=== PATIENT | female | born 1935 | race Caucasian/White ===

== ENCOUNTER 2018-08-15 17:37 | Inpatient (IN) ==
[2018-08-18] MEDS ORDERED: Ibuprofen 200 MG TABLET PO PRN (16:47)
[2018-08-18] MEDS: OLODATEROL IH SCH (17:28)
[2018-08-18] MEDS: *HR* OxyCODONE/APAP 5/325 TABLET PO PRN (17:40)
[2018-08-18] MEDS: Magnesium Oxide 400 MG TABLET PO SCH (20:29)
[2018-08-18] MEDS: [UNRECOGNIZED DRUG - OTHER] PO SCH (20:39)
[2018-08-19] MEDS: Cyclosporine [Restasis] 1 EACH OP PRN ×2 (05:25→18:37)
[2018-08-19 06:16] LABS: Eosinophils # 0.2 K/mcL (0.0-0.6); Eosinophils % 4.3 %; Hematocrit 33.9 % (35.3-44.9); Hemoglobin 10.8 g/dL (11.5-15.4); Immature Granulocytes % 0.5 % (0-4); Lymphocytes # 0.6 K/mcL (0.6-4.6); Lymphocytes % 13.6 %; Mean Corpuscular HGB Conc 31.9 g/dL (31.6-35.5); Mean Corpuscular Hemoglobin 28.5 pg (28.0-33.3); Mean Corpuscular Volume 89.4 fL (83.0-100.0); Mean Platelet Volume 10.5 fL (9.4-12.4); Monocytes # 0.5 K/mcL (0.0-1.3); Monocytes % 12.1 %; Neutrophils # 2.9 K/mcL (1.6-8.9); Platelet Count 313 K/mcL (140-400); Red Blood Count 3.79 M/mcL (3.82-4.97); Red Cell Distribution Width 13.3 % (11.5-14.5); Segmented Neutrophils % 68.5 %; White Blood Count 4.2 K/mcL (4.3-11.1)
[2018-08-19 06:51] LABS: BUN/Creatinine Ratio 22 (6-26); Blood Urea Nitrogen 16 mg/dL (8-23); Calcium 8.7 mg/dL (8.6-10.3); Carbon Dioxide 30 mEq/L (23-29); Chloride 100 mEq/L (98-107); Glucose 128 mg/dL (70-105); Osmolality,Calculated 287 (280-300); Potassium 4.1 mEq/L (3.5-5.1); Sodium 137 mEq/L (136-145); eGFR For African Americans > 60 (> 60); eGFR For Non-African Americans > 60 (> 60)
[2018-08-19] MEDS: Aspirin 81 MG TAB.CHEW PO SCH (08:53)
[2018-08-19] MEDS: *HR* OxyCODONE/APAP 5/325 TABLET PO PRN ×3 (08:54→18:31)
[2018-08-19] MEDS: Cholecalciferol (D-3) 1,000 UNIT (25MCG) TABLET PO SCH (08:55)
[2018-08-19] MEDS: Furosemide 20 MG TABLET PO SCH (08:56)
[2018-08-19] MEDS: [UNRECOGNIZED DRUG - REMARK] PO SCH ×2 (08:56→18:35)
[2018-08-19] MEDS: Magnesium Oxide 400 MG TABLET PO SCH ×2 (08:56→20:24)
[2018-08-19] MEDS: Vitamin B Complex/Vit C/Vit E 1 EACH TABLET PO SCH (08:58)
[2018-08-19] MEDS: LUTEIN 20 MG PO SCH (08:59)
[2018-08-19] MEDS: Cyanocobalamin (B-12) 1,000 MCG TABLET PO SCH (08:59)
[2018-08-19] MEDS ORDERED: MELOXICAM 15 MG PO SCH (09:00)
[2018-08-19] MEDS ORDERED: Ascorbic Acid 500 MG TABLET PO SCH ×2 (09:00)
[2018-08-19] MEDS ORDERED: Multivit/Ca/Min/Fe/FA 1 TAB TABLET PO SCH (09:00)
[2018-08-19] MEDS: OLODATEROL IH SCH ×2 (09:00→18:36)
[2018-08-19] MEDS: Flaxseed Oil [Omega-3 Flaxseed Oil] 1,000 MG PO SCH (09:01)
[2018-08-19] MEDS: [UNRECOGNIZED DRUG - OTHER] PO SCH ×2 (09:03→20:28)
[2018-08-19] MEDS: LYSINE 500 MG PO SCH (09:03)
--- NOTE | 2018-08-19 13:32 | Internal Med History&Physical ---
Date of Encounter: 08/19/18 Time of Encounter: 11:20 Assessment and Plan (1) History of total left knee replacement Current visit: Yes Status: Acute pt is post op and doing well Debility here for Rehab pending evaluations Pt does have hx of anxiety and agitation chronic pain well controlled good appetite Internal Medicine - H&P: HPI Chief complaint: debility post left total knee replacement Admitted From: Intrahospital Transfer History of present illness: Ms. Guillen is a 82 year old female who had repair of her left knee with left total knee replacement. She had no significant complications she was transferred here for rehabilitation after debility. She will receive PT and OT services. The patient is accompanied by HER-2 daughters. PT has good pain control. Pt reports chronic constipation. Dtrs say she is chronic anxiety. EXAM GEN alert oriented agitated well kempt WF Neck supple no bruit no mass Heart reg dist Lungs clear abd soft nt bs extremity no homans no edema pulses 2 plus bilat Past Med Surg Social Fam HX - Past Medical History Medical history: arthritis, cancer, COPD, CVA, fibromyalgia - Past Surgical History Surgical History: appendectomy, cholecystectomy Additional surgical history: hernia sx x 3 - Social History Smoking Status: Former smoker Smokeless Tobacco Status: No Alcohol use: occasionally Drug use: none - Family History Mother Adopted: No Living Status: Hx Family Endocrine Disorder: Yes Internal Medicine - H&P: Meds Ascorbic Acid [Vitamin C with Elvie Hips] 500 mg PO DAILY 08/18/18 [History] B Complex with Vitamin C [Julianna-Bee with C] 1 each PO DAILY 08/18/18 [History] Calcium Carbonate [Tums] 1,000 mg PO DAILY 08/18/18 [History] Cholecalciferol (Vitamin D3) [Vitamin D] 400 unit PO DAILY 08/18/18 [History] Cyanocobalamin (B-12) [Vitamin B12] 1,000 mcg PO DAILY 08/18/18 [History] Cyclosporine [Restasis] 1 each OP BID PRN 08/18/18 [History] Flaxseed Oil [[place]-3 Flaxseed Oil] 1,000 mg PO DAILY 08/18/18 [History] Furosemide [Lasix] 20 mg PO DAILY 08/18/18 [History] Gluc/Reid-MSM#1/C/Sarthak/Fracisco/Bor [Osteo Bi-Flex Caplet] 1 each PO BID 08/18/18 [History] Ibuprofen [Motrin] 200 mg PO Q6HR PRN 08/18/18 [History] Levocetirizine Dihydrochloride [Allergy Relief (Xyzal)] 5 mg PO DAILY 08/18/18 [History] Lutein [Natural Lutein] 20 mg PO DAILY 08/18/18 [History] Lysine [l-Lysine] 500 mg PO DAILY 08/18/18 [History] Magnesium Oxide [Magnesium] 400 mg PO BID 08/18/18 [History] Meloxicam 15 mg PO DAILY 08/18/18 [History] Multivit-Min/FA/Lycopen/Lutein [Centrum Silver Tablet] 1 each PO DAILY 08/18/18 [History] Olodaterol HCl [Striverdi Respimat] 4 gm IH BID 08/18/18 [History] Omeprazole [PriLOSEC] 20 mg PO DAILY 08/18/18 [History] Oxycodone HCl/Acetaminophen [Percocet 5-325 mg Tablet] 08/18/18 [History] Percocet 5-325 mg Tablet 1 mg PO Q4H PRN 08/18/18 [History] Preservision Areds 2 Softgel 1 PO BID 08/18/18 [History] Zolpidem Tartrate [Ambien Cr] 6.25 mg PO HS 08/18/18 [History] Allergy/AdvReac Type Severity Reaction Status Date / Time No Known Allergies Allergy Verified 03/05/16 12:50 All Systems PM: A 10-system review of systems was performed and is negative for pertinent findings except as documented above in the HPI. - Constitutional Vitals: Temp Pulse Resp BP Pulse Ox 98.2 F 78 16 111/60 92 08/19/18 07:07 08/19/18 08:16 08/19/18 08:16 08/19/18 08:16 08/19/18 08:16 Internal Med - H&P Results - Labs CBC & Chem 7: 08/19/18 05:25 08/19/18 05:25 Labs: Short CBC 08/19/18 Range/Units 05:25 WBC 4.2 L (4.3-11.1) K/mcL Hgb 10.8 L (11.5-15.4) g/dL Hct 33.9 L (35.3-44.9) % Plt Count 313 (140-400) K/mcL Neutrophils # 2.9 (1.6-8.9) K/mcL BMP 08/19/18 05:25 Sodium 137 Potassium 4.1 Chloride 100 Carbon Dioxide 30 H BUN 16 Creatinine 0.72 Glucose 128 H Calcium 8.7
[2018-08-20] MEDS: Ibuprofen 200 MG TABLET PO PRN ×3 (01:23→23:02)
[2018-08-20] MEDS: *HR* OxyCODONE/APAP 5/325 TABLET PO PRN ×3 (04:27→21:09)
[2018-08-20] MEDS: *HR* Enoxaparin 40 MG/0.4 ML SYRINGE SQ SCH (05:42)
[2018-08-20] MEDS: Cyclosporine [Restasis] 1 EACH OP PRN (05:46)
[2018-08-20] MEDS: OLODATEROL IH SCH ×2 (05:48→21:08)
[2018-08-20] MEDS: Flaxseed Oil [Omega-3 Flaxseed Oil] 1,000 MG PO SCH (08:40)
[2018-08-20] MEDS: ECHINACEA 400 MG PO SCH (08:40)
[2018-08-20] MEDS: MULTIVITAMIN PO SCH (08:40)
[2018-08-20] MEDS: [UNRECOGNIZED DRUG - OTHER] PO SCH ×2 (08:40→21:08)
[2018-08-20] MEDS: LUTEIN 20 MG PO SCH (08:41)
[2018-08-20] MEDS: [UNRECOGNIZED DRUG - OTHER] PO SCH ×2 (08:41→21:08)
[2018-08-20] MEDS: LYSINE 500 MG PO SCH (08:41)
[2018-08-20] MEDS: Magnesium Oxide 400 MG TABLET PO SCH ×2 (08:50→21:08)
[2018-08-20] MEDS: Ascorbic Acid 500 MG TABLET PO SCH (08:50)
[2018-08-20] MEDS: Aspirin 81 MG TAB.CHEW PO SCH (08:50)
[2018-08-20] MEDS: Cholecalciferol (D-3) 1,000 UNIT (25MCG) TABLET PO SCH (08:50)
[2018-08-20] MEDS: Vitamin B Complex/Vit C/Vit E 1 EACH TABLET PO SCH ×2 (08:50)
[2018-08-20] MEDS: Furosemide 20 MG TABLET PO SCH (08:50)
[2018-08-20] MEDS: Pyridoxine (B-6) 50 MG TABLET PO SCH (11:53)
[2018-08-20] MEDS: Cyanocobalamin (B-12) 1,000 MCG TABLET PO SCH (11:53)
--- NOTE | 2018-08-20 12:53 | Internal Med Progress Note ---
Date of Encounter: 08/20/18 Time of Encounter: 12:51 - Assessment and plan (1) History of total left knee replacement Current Visit: Yes Status: Acute Assessment and plan: No acute issues at this time. Patient's left knee surgical incision appears healthy with dressing intact. Slight swelling noted. Patient with complaints o f pain to her left knee and stating that her medication is not enough, but refuses any increase and medication stating that we are trying to make her drug addict. Patient dissipating of physical therapy. We will continue with current plan of care. (2) Agitation Current Visit: Yes Status: Acute Assessment and plan: Patient noted to be easily agitated during exam and interview. Patient having multiple complaints from staff due to agitation and being uncooperative. Patient has had multiple and appropriate answers during conversation. We will refer patient to psychology for evaluation. We will continue with current plan of care. Patient with recorded history of agitation. (3) COPD (chronic obstructive pulmonary disease) Current Visit: Yes Status: Acute Assessment and plan: No acute issues. Lungs are clear throughout. We will continue with current plan of care Qualifiers: COPD type: unspecified COPD Qualified Code(s): J44.9 - Chronic obstructive pulmonary disease, unspecified - Time Spent With Patient less than 15 minutes - Subjective Interval history: Patient appears relaxed for complaints of pain to her left knee. Patient was asked that the pain medication was effective when she Jacqueline and she stated yes and when discussed possible increase her medication patient accused us of trying to make her a drug addict. Patient has been argumentative with staff during the morning on multiple subjects. During exam was agitated and argumentative during questioning. Patient appears appropriate with answers but unable to evaluate her orientation due to her agitation and answering questions. Therapy states the patient has been compliant with therapy. Nurse reports difficulty with working with patient with patient usually making multiple demands prior to p erforming any simple task. - Constitutional Vitals: Temp Pulse Resp BP Pulse Ox 97.5 F L 79 17 116/67 95 08/20/18 07:32 08/20/18 07:32 08/20/18 07:32 08/20/18 07:32 08/20/18 07:32 Exam: Unpleasant during conversation. Answer simple questions appropriately but also refuses answer questions. Reports of compliance and appropriateness during therapy. Patient was cooperative with exam - Head Head exam: Present: atraumatic, normocephalic - Eye Eye exam: Present: PERRL, conjuntiva pink, sclera anicteric Pupils: Present: PERRL - Neck Neck exam general surgery: Present: supple, trachea midline. Absent: lymphadenopathy - Respiratory Respiratory exam: Present: CTAB. Absent: accessory muscle use, rales, rhonchi, wheezes - Cardiovascular Cardiovascular exam: Present: RRR, +S1, +S2. Absent: diastolic murmur, gallop, rubs, systolic murmur - GI/Abdominal GI/Abdominal exam: Present: normal bowel sounds, soft, no peritoneal signs. Absent: distended, tenderness - Extremities Exam Extremities exam: Present: warm, radial pulses palpable and symmetrical. Absent: calf tenderness, cyanotic, pedal edema Additional comments: Left knee with midline incision with dressing showing small amount of shadowing. Slight edema noted. - Neurological Exam Neurological exam: Present: CN II-XII intact, oriented X3, no focal deficits. Absent: pronater drift, facial droop, speech deficit - Psychiatric Psychiatric exam: Present: agitated, normal affect Additional comments: Patient noted to be agitated with mood changes, depending on task on hand. Patient was cooperative with exam but has reportedly been uncooperative during ADLs with nursing. Easily agitated with multiple inappropriate answers to questions. - Skin Skin exam: Present: dry, intact Internal Medicine: Result - Labs CBC & Chem 7: 08/19/18 05:25 08/19/18 05:25 Consult Discharge Plan - Plan Referrals: NONE,PCP [Primary Care Provider] -
[2018-08-20] MEDS: [UNRECOGNIZED DRUG - REMARK] PO SCH ×2 (14:48→21:12)
[2018-08-21] MEDS: Ibuprofen 200 MG TABLET PO PRN (05:31)
[2018-08-21] MEDS: *HR* Enoxaparin 40 MG/0.4 ML SYRINGE SQ SCH (05:31)
[2018-08-21] MEDS: Cyclosporine [Restasis] 1 EACH OP PRN (07:14)
[2018-08-21] MEDS: OLODATEROL IH SCH ×3 (07:14→19:33)
[2018-08-21] MEDS: Furosemide 20 MG TABLET PO SCH (08:59)
[2018-08-21] MEDS: Cyanocobalamin (B-12) 1,000 MCG TABLET PO SCH (08:59)
[2018-08-21] MEDS: Pyridoxine (B-6) 50 MG TABLET PO SCH (09:00)
[2018-08-21] MEDS: Cholecalciferol (D-3) 1,000 UNIT (25MCG) TABLET PO SCH (09:00)
[2018-08-21] MEDS: Aspirin 81 MG TAB.CHEW PO SCH (09:00)
[2018-08-21] MEDS: Ascorbic Acid 500 MG TABLET PO SCH (09:00)
[2018-08-21] MEDS: Magnesium Oxide 400 MG TABLET PO SCH ×2 (09:00→23:14)
[2018-08-21] MEDS: MULTIVITAMIN PO SCH (09:01)
[2018-08-21] MEDS: ECHINACEA 400 MG PO SCH (09:01)
[2018-08-21] MEDS: LYSINE 500 MG PO SCH (09:02)
[2018-08-21] MEDS: Flaxseed Oil [Omega-3 Flaxseed Oil] 1,000 MG PO SCH (09:02)
[2018-08-21] MEDS: [UNRECOGNIZED DRUG - OTHER] PO SCH ×2 (09:02→23:14)
[2018-08-21] MEDS: [UNRECOGNIZED DRUG - OTHER] PO SCH ×2 (09:03→23:15)
[2018-08-21] MEDS: LUTEIN 20 MG PO SCH (09:03)
[2018-08-21] MEDS: *HR* OxyCODONE/APAP 5/325 TABLET PO PRN ×2 (09:04→19:30)
[2018-08-21] MEDS: [UNRECOGNIZED DRUG - REMARK] PO SCH (15:33)
--- NOTE | 2018-08-21 15:48 | Internal Med Progress Note ---
Date of Encounter: 08/21/18 Time of Encounter: 15:46 - Assessment and plan (1) History of total left knee replacement Current Visit: Yes Status: Acute Assessment and plan: No acute issues at this time. Patient's left knee surgical incision appears healthy with dressing intact. Slight swelling noted. Patient participating of p hysical therapy. We will continue with current plan of care. (2) Agitation Current Visit: Yes Status: Acute Assessment and plan: Patient continues to become easily agitated during interactions with staff, at times have becomes very rude. Patient being followed by psychology. We will await further recommendations. Patient has a history of agitation per medical records (3) COPD (chronic obstructive pulmonary disease) Current Visit: Yes Status: Acute Assessment and plan: No acute issues. Lungs are clear throughout. We will continue with current plan of care Qualifiers: COPD type: unspecified COPD Qualified Code(s): J44.9 - Chronic obstructive pulmonary disease, unspecified - Time Spent With Patient less than 15 minutes - Subjective Interval history: Patient with complaints of cough but states no sputum has been produced. Patient recently had a chest x-ray done yesterday which shows no infectious process. Patient is been afebrile and has been observed ambulating throughout the facility with physical therapy and explained no shortness of breath or coughing. She continues to have episodes of agitation and rudeness with staff. She remains oriented but during questioning she can have an appropriate answers - Constitutional Vitals: Temp Pulse Resp BP Pulse Ox 98.1 F 69 15 124/70 92 08/21/18 07:32 08/21/18 07:32 08/21/18 07:32 08/21/18 07:32 08/21/18 07:32 General appearance: Present: A&O X 3 Exam: Patient easily agitated during questioning. - Head Head exam: Present: atraumatic, normocephalic - Eye Eye exam: Present: PERRL, conjuntiva pink, sclera anicteric Pupils: Present: PERRL - Neck Neck exam general surgery: Present: supple, trachea midline. Absent: lymphadenopathy - Respiratory Respiratory exam: Present: CTAB. Absent: accessory muscle use, rales, rhonchi, wheezes - Cardiovascular Cardiovascular exam: Present: RRR, +S1, +S2. Absent: diastolic murmur, gallop, rubs, systolic murmur - GI/Abdominal GI/Abdominal exam: Present: normal bowel sounds, soft, no peritoneal signs. Absent: distended, tenderness - Extremities Exam Extremities exam: Present: warm, radial pulses palpable and symmetrical. Absent: calf tenderness, cyanotic, pedal edema Additional comments: Left knee with midline surgical incision appears dry and intact. Slight swelling noted left knee - Neurological Exam Neurological exam: Present: CN II-XII intact, oriented X3, no focal deficits. Absent: pronater drift, facial droop, speech deficit - Skin Skin exam: Present: dry, intact Internal Medicine: Result - Labs CBC & Chem 7: 08/19/18 05:25 08/19/18 05:25 - Impressions Impressions Chest X-Ray 08/20/18 09:43 IMPRESSION: No acute process. D/ / Jose Martin Haskins MD / Jose Martin Haskins MD Interpreting Provider: Jose Martin Haskins MD Consult Discharge Plan - Plan Referrals: NONE,PCP [Primary Care Provider] -
--- NOTE | 2018-08-21 15:53 | Psychological Evaluation ---
Date of Encounter: 08/21/18 Time of Encounter: 10:00 History of Present Illness History of present illness: Ms. Guillen is a 82 year old female who had repair of her left knee with left total knee replacement. She had no significant complications she was transferred here for rehabilitation after debility. She will receive PT and OT services. The patient is accompanied by HER-2 daughters. PT has good pain control. Pt reports chronic constipation. Dtrs say she is chronic anxiety. Past Medical History - Psychiatric History Psychiatric history: Reports: anxiety Additional Psychiatric History: Stated counseling for marital issues in the past. Home Medications and Allergies Ascorbic Acid [Vitamin C with Elvie Hips] 500 mg PO DAILY 08/18/18 [History] B Complex with Vitamin C [Julianna-Bee with C] 1 each PO DAILY 08/18/18 [History] Calcium Carbonate [Tums] 1,000 mg PO DAILY 08/18/18 [History] Cholecalciferol (Vitamin D3) [Vitamin D] 400 unit PO DAILY 08/18/18 [History] Cyanocobalamin (B-12) [Vitamin B12] 1,000 mcg PO DAILY 08/18/18 [History] Cyclosporine [Restasis] 1 each OP BID PRN 08/18/18 [History] Flaxseed Oil [[place]-3 Flaxseed Oil] 1,000 mg PO DAILY 08/18/18 [History] Furosemide [Lasix] 20 mg PO DAILY 08/18/18 [History] Gluc/Reid-MSM#1/C/Sarthak/Fracisco/Bor [Osteo Bi-Flex Caplet] 1 each PO BID 08/18/18 [History] Ibuprofen [Motrin] 200 mg PO Q6HR PRN 08/18/18 [History] Levocetirizine Dihydrochloride [Allergy Relief (Xyzal)] 5 mg PO DAILY 08/18/18 [History] Lutein [Natural Lutein] 20 mg PO DAILY 08/18/18 [History] Lysine [l-Lysine] 500 mg PO DAILY 08/18/18 [History] Magnesium Oxide [Magnesium] 400 mg PO BID 08/18/18 [History] Meloxicam 15 mg PO DAILY 08/18/18 [History] Multivit-Min/FA/Lycopen/Lutein [Centrum Silver Tablet] 1 each PO DAILY 08/18/18 [History] Olodaterol HCl [Striverdi Respimat] 4 gm IH BID 08/18/18 [History] Omeprazole [PriLOSEC] 20 mg PO DAILY 08/18/18 [History] Oxycodone HCl/Acetaminophen [Percocet 5-325 mg Tablet] 08/18/18 [History] Percocet 5-325 mg Tablet 1 mg PO Q4H PRN 08/18/18 [History] Preservision Areds 2 Softgel 1 PO BID 08/18/18 [History] Zolpidem Tartrate [Ambien Cr] 6.25 mg PO HS 08/18/18 [History] Allergy/AdvReac Type Severity Reaction Status Date / Time No Known Allergies Allergy Verified 03/05/16 12:50 Social History - Social History Social History: 3 times. Currently single and lives alone. Has 2 adult daughters in the general area. Retired 2000. 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 - Alcohol Use Alcohol Use: occasionally - Drug Use Drug Use: none Cognitive/Emotional Assessment - Cognitive Ability Abstract Thinking Ability: No Deficits Noted Attention Span Ability: Capable of Focused Attention, Capable of Sustained Attention Language Function Ability: No Deficits Noted Verbal Communication Ability: Conversational Style Problem Solving Ability: Able To Solve Simple Problems Safety Awareness: Situational Awareness Level of Alertness: Alert Memory Description: Recent Intact, Family Day Care Provider Intact Orientation: Person, Place, Time Ability to Follow Directions: Good Speech Pattern: Normal rate, Normal rhythm, Normal tone Thought Process: Intact - Emotional Status Mood Description: Depressed, Anxious Affect Description: Full range Coping Ability: Unsure about ability to cope Additional Findings: Stated she is "living in fear" of ability to return home and live independently. Not ready to go jome and doesn't feel capable to manage by self. Stated she was very "depressed". Assessment & Plan - Prognosis Prognosis: Good - Treatment Plan Treatment Plan/Recommendations: Will be set up idependent in room to increase her awareness of abilities. She has an Adjustment Disorder with mixed anxiety and depressed mood. She appears rigid and needs concrete examples of skill set and abilities. Procedures - Participants Therapy Participant: Patient - Session Time Session Start Time: 10:00 Session Stop Time: 10:30
[2018-08-22] MEDS: Ibuprofen 200 MG TABLET PO PRN (01:46)
[2018-08-22] MEDS: *HR* Enoxaparin 40 MG/0.4 ML SYRINGE SQ SCH (05:08)
[2018-08-22] MEDS: Cholecalciferol (D-3) 1,000 UNIT (25MCG) TABLET PO SCH (09:26)
[2018-08-22] MEDS: Pyridoxine (B-6) 50 MG TABLET PO SCH (09:26)
[2018-08-22] MEDS: Magnesium Oxide 400 MG TABLET PO SCH ×2 (09:26→21:05)
[2018-08-22] MEDS: Furosemide 20 MG TABLET PO SCH (09:26)
[2018-08-22] MEDS: Cyanocobalamin (B-12) 1,000 MCG TABLET PO SCH (09:27)
[2018-08-22] MEDS: Vitamin B Complex/Vit C/Vit E 1 EACH TABLET PO SCH (09:27)
[2018-08-22] MEDS: Aspirin 81 MG TAB.CHEW PO SCH (09:27)
[2018-08-22] MEDS: *HR* OxyCODONE/APAP 5/325 TABLET PO PRN ×3 (09:27→20:52)
[2018-08-22] MEDS: Ascorbic Acid 500 MG TABLET PO SCH (09:27)
[2018-08-22] MEDS: LYSINE 500 MG PO SCH (09:47)
[2018-08-22] MEDS: ECHINACEA 400 MG PO SCH (09:47)
[2018-08-22] MEDS: [UNRECOGNIZED DRUG - OTHER] PO SCH ×2 (09:47→21:06)
[2018-08-22] MEDS: LUTEIN 20 MG PO SCH (09:47)
[2018-08-22] MEDS: [UNRECOGNIZED DRUG - OTHER] PO SCH ×2 (09:47→21:05)
[2018-08-22] MEDS: Flaxseed Oil [Omega-3 Flaxseed Oil] 1,000 MG PO SCH (09:47)
[2018-08-22] MEDS: OLODATEROL IH SCH ×2 (09:48→22:34)
[2018-08-22] MEDS: MULTIVITAMIN PO SCH (09:48)
--- NOTE | 2018-08-22 10:42 | Internal Med Progress Note ---
Date of Encounter: 08/22/18 Time of Encounter: 10:41 - Assessment and plan (1) History of total left knee replacement Current Visit: Yes Status: Acute Assessment and plan: No acute issues at this time. Patient's left knee surgical incision appears healthy with dressing intact. Slight swelling noted to the left leg distal to s urgical site. We will obtain a venous Doppler due to patient's complaints of pain.. Patient participating of physical therapy. We will continue with current plan of care. (2) Agitation Current Visit: Yes Status: Acute Assessment and plan: Patient continues to become easily agitated during interactions with staff, at times have becomes very rude. Patient being followed by psychology. We will await further recommendations. Patient has a history of agitation per medical records (3) COPD (chronic obstructive pulmonary disease) Current Visit: Yes Status: Acute Assessment and plan: No acute issues. Lungs are clear throughout. We will continue with current plan of care Qualifiers: COPD type: unspecified COPD Qualified Code(s): J44.9 - Chronic obstructive pulmonary disease, unspecified - Time Spent With Patient less than 15 minutes - Subjective Interval history: Patient doing well. Patient states she continues to have mild pain to her left knee area. Patient also voiced concerns about left leg being swollen distal to the surgical site. Denies any Pain. Patient with complaints about not being able to take her home medications without nursing involvement. Patient explained that nursing must be present for documentation. Patient has not and agreement. - Constitutional Vitals: Temp Pulse Resp BP Pulse Ox 97.5 F L 74 18 134/70 96 08/22/18 07:00 08/22/18 07:00 08/22/18 07:00 08/22/18 07:00 08/22/18 07:00 General appearance: Present: A&O X 3 - Head Head exam: Present: atraumatic, normocephalic - Eye Eye exam: Present: PERRL, conjuntiva pink, sclera anicteric Pupils: Present: PERRL - Neck Neck exam general surgery: Present: supple, trachea midline. Absent: lymphadenopathy - Respiratory Respiratory exam: Present: CTAB. Absent: accessory muscle use, rales, rhonchi, wheezes - Cardiovascular Cardiovascular exam: Present: RRR, +S1, +S2. Absent: diastolic murmur, gallop, rubs, systolic murmur - GI/Abdominal GI/Abdominal exam: Present: normal bowel sounds, soft, no peritoneal signs. Absent: distended, tenderness - Extremities Exam Extremities exam: Present: warm, radial pulses palpable and symmetrical. Absent: calf tenderness, cyanotic, pedal edema Additional comments: Left knee with midline incision appears healthy and intact. Slight edema noted. - Neurological Exam Neurological exam: Present: CN II-XII intact, oriented X3, no focal deficits. Absent: pronater drift, facial droop, speech deficit - Skin Skin exam: Present: dry, intact Internal Medicine: Result - Labs CBC & Chem 7: 08/19/18 05:25 08/19/18 05:25 Consult Discharge Plan - Plan Referrals: NONE,PCP [Primary Care Provider] -
[2018-08-22] MEDS: [UNRECOGNIZED DRUG - REMARK] PO SCH (14:49)
[2018-08-23] MEDS: *HR* OxyCODONE/APAP 5/325 TABLET PO PRN ×2 (02:22→22:15)
[2018-08-23] MEDS: *HR* Enoxaparin 40 MG/0.4 ML SYRINGE SQ SCH (06:10)
[2018-08-23] MEDS: Cyanocobalamin (B-12) 1,000 MCG TABLET PO SCH (08:19)
[2018-08-23] MEDS: Pyridoxine (B-6) 50 MG TABLET PO SCH (08:19)
[2018-08-23] MEDS: Aspirin 81 MG TAB.CHEW PO SCH (08:19)
[2018-08-23] MEDS: Cholecalciferol (D-3) 1,000 UNIT (25MCG) TABLET PO SCH (08:19)
[2018-08-23] MEDS: Ibuprofen 200 MG TABLET PO PRN ×2 (08:19→15:50)
[2018-08-23] MEDS: Magnesium Oxide 400 MG TABLET PO SCH ×2 (08:19→21:20)
[2018-08-23] MEDS: MULTIVITAMIN PO SCH (08:20)
[2018-08-23] MEDS: Vitamin B Complex/Vit C/Vit E 1 EACH TABLET PO SCH (08:20)
[2018-08-23] MEDS: Ascorbic Acid 500 MG TABLET PO SCH (08:20)
[2018-08-23] MEDS: Furosemide 20 MG TABLET PO SCH (08:20)
[2018-08-23] MEDS: Flaxseed Oil [Omega-3 Flaxseed Oil] 1,000 MG PO SCH (08:21)
[2018-08-23] MEDS: ECHINACEA 400 MG PO SCH (08:21)
[2018-08-23] MEDS: [UNRECOGNIZED DRUG - OTHER] PO SCH ×2 (08:21→21:20)
[2018-08-23] MEDS: LYSINE 500 MG PO SCH (08:21)
[2018-08-23] MEDS: LUTEIN 20 MG PO SCH (08:21)
[2018-08-23] MEDS: OLODATEROL IH SCH ×2 (08:21→21:20)
[2018-08-23] MEDS: [UNRECOGNIZED DRUG - OTHER] PO SCH ×2 (08:21→21:20)
--- NOTE | 2018-08-23 13:10 | Internal Med Progress Note ---
Date of Encounter: 08/23/18 Time of Encounter: 13:08 - Assessment and plan (1) History of total left knee replacement Current Visit: Yes Status: Acute Assessment and plan: No acute issues at this time. Patient's left knee surgical incision appears healthy with dressing intact. Slight swelling noted to the left leg distal to s urgical site. Left leg appears less swollen. We will hold off on venous Doppler. Denies any calf tenderness. Patient participating of physical therapy. We will continue with current plan of care. (2) Agitation Current Visit: Yes Status: Acute Assessment and plan: Patient continues to become easily agitated during interactions with staff, at times have becomes very rude. Patient being followed by psychology. Patient has had improved interaction with staff or the past 2 days. (3) COPD (chronic obstructive pulmonary disease) Current Visit: Yes Status: Acute Assessment and plan: No acute issues. Lungs are clear throughout. We will continue with current plan of care Qualifiers: COPD type: unspecified COPD Qualified Code(s): J44.9 - Chronic obstructive pulmonary disease, unspecified - Time Spent With Patient less than 15 minutes - Subjective Interval history: Patient doing well. Patient continues with complaints of generalized discomforts. Patient has recently been offered an increase in her pain medications but has refused. Patient reportedly has been dissipated and physical therapy and progressing well. Patient being prepared for discharge in the morning. Patient's interaction was staffed has been improving over the past several days - Constitutional Vitals: Temp Pulse Resp BP Pulse Ox 97.7 F 94 16 123/63 93 08/23/18 07:00 08/23/18 07:00 08/23/18 07:00 08/23/18 07:00 08/23/18 07:00 General appearance: Present: A&O X 3 - Head Head exam: Present: atraumatic, normocephalic - Eye Eye exam: Present: PERRL, conjuntiva pink, sclera anicteric Pupils: Present: PERRL - Neck Neck exam general surgery: Present: supple, trachea midline. Absent: lymphadenopathy - Respiratory Respiratory exam: Present: CTAB. Absent: accessory muscle use, rales, rhonchi, wheezes - Cardiovascular Cardiovascular exam: Present: RRR, +S1, +S2. Absent: diastolic murmur, gallop, rubs, systolic murmur - GI/Abdominal GI/Abdominal exam: Present: normal bowel sounds, soft, no peritoneal signs. Absent: distended, tenderness - Extremities Exam Extremities exam: Present: warm, radial pulses palpable and symmetrical. Absent: calf tenderness, cyanotic, pedal edema Additional comments: Left knee appears slightly swollen with a midline surgical incision appears healthy and intact. No erythema or ecchymosis noted - Neurological Exam Neurological exam: Present: CN II-XII intact, oriented X3, no focal deficits. Absent: pronater drift, facial droop, speech deficit - Skin Skin exam: Present: dry, intact Internal Medicine: Result - Labs CBC & Chem 7: 08/19/18 05:25 08/19/18 05:25 Consult Discharge Plan - Plan Referrals: NONE,PCP [Primary Care Provider] -
--- NOTE | 2018-08-23 13:25 | Physician Discharge Referral ---
Home Health/Hosp Referral Info Transfer to: Home Health Provider in Charge Post Discharge: PCP - Diagnosis (1) History of total left knee replacement Priority: Primary Status: Acute (2) Agitation Priority: Secondary Status: Chronic (3) COPD (chronic obstructive pulmonary disease) Priority: Secondary Status: Chronic - Respiratory Orders Smoking Cessation: Smoking cessation has been advised. For more information, call the [place] Tobacco Quit Line at 5-263-FVXU-NOW. - Diet/Nutrition Diet/Nutrition Orders: Cardiac - Activity Activity Orders: Up ad yenny, Walker - Services Needed Following services are medically necessary services: Nursing, Physical Therapy - Transfer Medications Home Medications: Ascorbic Acid [Vitamin C with Elvie Hips] 500 mg PO DAILY 08/18/18 [History] B Complex with Vitamin C [Julianna-Bee with C] 1 each PO DAILY 08/18/18 [History] Calcium Carbonate [Tums] 1,000 mg PO DAILY 08/18/18 [History] Cholecalciferol (Vitamin D3) [Vitamin D] 400 unit PO DAILY 08/18/18 [History] Cyanocobalamin (B-12) [Vitamin B12] 1,000 mcg PO DAILY 08/18/18 [History] Cyclosporine [Restasis] 1 each OP BID PRN 08/18/18 [History] Flaxseed Oil [[place]-3 Flaxseed Oil] 1,000 mg PO DAILY 08/18/18 [History] Furosemide [Lasix] 20 mg PO DAILY 08/18/18 [History] Gluc/Reid-MSM#1/C/Sarthak/Fracisco/Bor [Osteo Bi-Flex Caplet] 1 each PO BID 08/18/18 [History] Ibuprofen [Motrin] 200 mg PO Q6HR PRN 08/18/18 [History] Levocetirizine Dihydrochloride [Allergy Relief (Xyzal)] 5 mg PO DAILY 08/18/18 [History] Lutein [Natural Lutein] 20 mg PO DAILY 08/18/18 [History] Lysine [l-Lysine] 500 mg PO DAILY 08/18/18 [History] Magnesium Oxide [Magnesium] 400 mg PO BID 08/18/18 [History] Meloxicam 15 mg PO DAILY 08/18/18 [History] Multivit-Min/FA/Lycopen/Lutein [Centrum Silver Tablet] 1 each PO DAILY 08/18/18 [History] Olodaterol HCl [Striverdi Respimat] 4 gm IH BID 08/18/18 [History] Omeprazole [PriLOSEC] 20 mg PO DAILY 08/18/18 [History] Oxycodone HCl/Acetaminophen [Percocet 5-325 mg Tablet] 08/18/18 [History] Percocet 5-325 mg Tablet 1 mg PO Q4H PRN 08/18/18 [History] Preservision Areds 2 Softgel 1 PO BID 08/18/18 [History] Zolpidem Tartrate [Ambien Cr] 6.25 mg PO HS 08/18/18 [History] Allergies/Adverse Reactions: Allergy/AdvReac Type Severity Reaction Status Date / Time No Known Allergies Allergy Verified 03/05/16 12:50 Certification: Further, I certify that my clinical findings support that this patient is homebound (i.e. absences from home require considerable and taxing effort and are for medical reasons or sikhism services or infrequently or short duration when for other reasons) because: Homebound Reason: Leaving home requires considerable and taxing effort due to condition Attestation: My signature below is to certify that this patient is under my care and that I, or nurse practitioner, or a physician's outreach assistant working with me, has a [id number] encounter with this patient.
--- NOTE | 2018-08-23 13:28 | Discharge Summary ---
<Gordon Cormier Yuki - Last Filed: 08/23/18 13:26> Date of Encounter: 08/23/18 - Discharge Diagnosis (1) History of total left knee replacement Priority: Primary Status: Acute Comments: Patient had a left total knee replacement performed at an [facility] and was transferred to this facility for further rehabilitation due to generalized weakness. Patient participated with physical therapy and progressed well during her stay of facility. Left knee surgical incision remains healthy and intact. Patient's pain has been well managed with current medications. Patient is continue follow-up with her PCP and orthopedic surgeon (2) Agitation Priority: Secondary Status: Chronic Comments: Patient continues to have issues with agitation. Patient has been at times Route and agitated with staff during her care. Patient's attitude has improved over the past 48 hours. Patient with a documented history of agitation. She has remained oriented (3) COPD (chronic obstructive pulmonary disease) Priority: Secondary Status: Chronic Comments: No acute issues during stay of facility. Patient's lungs remain clear. No complaints dyspnea or productive cough. We will continue with current medications and follow-up PCP after discharge Qualifiers: COPD type: unspecified COPD Qualified Code(s): J44.9 - Chronic obstructive pulmonary disease, unspecified Hospital course: Ms. Guillen is a 82 year old female . Who had a left total knee replacement performed at an [facility]. Patient was transferred to this facility for further rehabilitation due to her generalized weakness and gait. Patient participated in physical therapy and progressed well and has been ambulating with a walker independently. Patient's left knee surgical incision appears healthy and intact. Pain is been well managed with current medications. No other acute issues has occurred during her stay. Patient continues to have issues with agitation, during which times she becomes very with staff and noncompliant. Patient is to continue follow-up with PCP and orthopedic surgeon after discharge. She will continue with current medications. Discharge discussed with: patient Time spent discussing smoking cessation with patient: 3 to 10 minutes - Time Spent with Patient Total time spent providing and/or coordinating discharge services: Time spent: Less than 30 minutes - Discharge Medications Prescriptions: No Action Cyclosporine [Restasis] 1 each OP BID PRN PRN Reason: Dry Eyes B Complex with Vitamin C [Julianna-Bee with C] 1 each PO DAILY Percocet 5-325 mg Tablet 1 mg PO Q4H PRN PRN Reason: Pain Gluc/Reid-MSM#1/C/Sarthak/Fracisco/Bor [Osteo Bi-Flex Caplet] 1 each PO BID Omeprazole [PriLOSEC] 20 mg PO DAILY Olodaterol HCl [Striverdi Respimat] 4 gm IH BID Meloxicam 15 mg PO DAILY Magnesium Oxide [Magnesium] 400 mg PO BID Lutein [Natural Lutein] 20 mg PO DAILY Lysine [l-Lysine] 500 mg PO DAILY Ibuprofen [Motrin] 200 mg PO Q6HR PRN PRN Reason: Pain Furosemide [Lasix] 20 mg PO DAILY Flaxseed Oil [[place]-3 Flaxseed Oil] 1,000 mg PO DAILY Cyanocobalamin (B-12) [Vitamin B12] 1,000 mcg PO DAILY Cholecalciferol (Vitamin D3) [Vitamin D] 400 unit PO DAILY Multivit-Min/FA/Lycopen/Lutein [Centrum Silver Tablet] 1 each PO DAILY Calcium Carbonate [Tums] 1,000 mg PO DAILY Zolpidem Tartrate [Ambien Cr] 6.25 mg PO HS Preservision Areds 2 Softgel 1 PO BID Oxycodone HCl/Acetaminophen [Percocet 5-325 mg Tablet] Levocetirizine Dihydrochloride [Allergy Relief (Xyzal)] 5 mg PO DAILY Ascorbic Acid [Vitamin C with Elvie Hips] 500 mg PO DAILY Home Medications: Ascorbic Acid [Vitamin C with Elvie Hips] 500 mg PO DAILY 08/18/18 [History] B Complex with Vitamin C [Julianna-Bee with C] 1 each PO DAILY 08/18/18 [History] Calcium Carbonate [Tums] 1,000 mg PO DAILY 08/18/18 [History] Cholecalciferol (Vitamin D3) [Vitamin D] 400 unit PO DAILY 08/18/18 [History] Cyanocobalamin (B-12) [Vitamin B12] 1,000 mcg PO DAILY 08/18/18 [History] Cyclosporine [Restasis] 1 each OP BID PRN 08/18/18 [History] Flaxseed Oil [[place]-3 Flaxseed Oil] 1,000 mg PO DAILY 08/18/18 [History] Furosemide [Lasix] 20 mg PO DAILY 08/18/18 [History] Gluc/Reid-MSM#1/C/Sarthak/Fracisco/Bor [Osteo Bi-Flex Caplet] 1 each PO BID 08/18/18 [History] Ibuprofen [Motrin] 200 mg PO Q6HR PRN 08/18/18 [History] Levocetirizine Dihydrochloride [Allergy Relief (Xyzal)] 5 mg PO DAILY 08/18/18 [History] Lutein [Natural Lutein] 20 mg PO DAILY 08/18/18 [History] Lysine [l-Lysine] 500 mg PO DAILY 08/18/18 [History] Magnesium Oxide [Magnesium] 400 mg PO BID 08/18/18 [History] Meloxicam 15 mg PO DAILY 08/18/18 [History] Multivit-Min/FA/Lycopen/Lutein [Centrum Silver Tablet] 1 each PO DAILY 08/18/18 [History] Olodaterol HCl [Striverdi Respimat] 4 gm IH BID 08/18/18 [History] Omeprazole [PriLOSEC] 20 mg PO DAILY 08/18/18 [History] Oxycodone HCl/Acetaminophen [Percocet 5-325 mg Tablet] 08/18/18 [History] Percocet 5-325 mg Tablet 1 mg PO Q4H PRN 08/18/18 [History] Preservision Areds 2 Softgel 1 PO BID 08/18/18 [History] Zolpidem Tartrate [Ambien Cr] 6.25 mg PO HS 08/18/18 [History] Allergies/Adverse Reactions: Allergy/AdvReac Type Severity Reaction Status Date / Time No Known Allergies Allergy Verified 03/05/16 12:50 Date of admission: 08/18/18 15:34 Primary care physician: PCP NONE Consults: 08/18/18 15:59 Consult to Occupational Therapy [CONS] Routine Comment: Evaluate, develop and implement POC Reason for Consult: s/p tkr Does patient have active BEDREST order?: No Is patient medically & hemodynamically stable?: Yes Patient assessed for mobility or mobilized this visit?: No Consult to Physical Therapy [CONS] Routine Comment: Evaluate, develop and implement POC Reason for Consult: s/p tkr Does patient have active BEDREST order?: No Is patient medically & hemodynamically stable?: Yes Patient assessed for mobility or mobilized this visit?: No Consult to Recreational Therapy [CONS] Routine Comment: Evaluate, develop and implement POC Consult to Mural Painter [CONS] Routine Reason for SW Consult: s/p tkr 08/20/18 10:35 Consult to Psychology [CONS] Routine Consulting Provider: Michelle Cam Reason for Consult: Possible depression; adjustment disorder Call Completed: No Discharging clinician: Elsy Watson - Constitutional Vitals: Temp Pulse Resp BP Pulse Ox 97.7 F 94 16 123/63 93 08/23/18 07:00 08/23/18 07:00 08/23/18 07:00 08/23/18 07:00 08/23/18 07:00 General appearance: Present: A&O X 3 - Head Head exam: Present: atraumatic, normocephalic - Eye Eye exam: Present: PERRL, conjuntiva pink, sclera anicteric Pupils: Present: PERRL - Neck Neck exam general surgery: Present: supple, trachea midline. Absent: lymphadenopathy - Respiratory Respiratory exam: Present: CTAB. Absent: accessory muscle use, rales, rhonchi, wheezes - Cardiovascular Cardiovascular exam: Present: RRR, +S1, +S2. Absent: diastolic murmur, gallop, rubs, systolic murmur - GI/Abdominal GI/Abdominal exam: Present: normal bowel sounds, soft, no peritoneal signs. Absent: distended, tenderness - Extremities Exam Extremities exam: Present: warm, radial pulses palpable and symmetrical. Absent: calf tenderness, cyanotic, pedal edema Additional comments: Slight swelling to the left knee. Midline surgical incision appears healthy and intact - Neurological Exam Neurological exam: Present: CN II-XII intact, oriented X3, no focal deficits. Absent: pronater drift, facial droop, speech deficit - Skin Skin exam: Present: dry, intact - Patient Status Disposition: Home Health Service Condition: Good Functional capacity at discharge: uses cane/walker Overall status at discharge: patient is progressing back to baseline - Discharge Instructions Instructions: Total Knee Replacement (DC) Follow Up With: Russell Carias [Non-Partnered Physician] - 10/03/18 11:30 am NONE,PCP [Primary Care Provider] - (Please follow up with your PCP in one to two weeks. Unable to make follow up appointment due to the weekend.) Additional Instructions: Follow-up appointments: If there is not an appointment listed below, please call your physician and schedule a follow-up appointment. If you have congestive heart failure and your symptoms return, make an appointment with your physician. Medication List: Carry an up to date list of medications you are taking at all time. We have given you an updated medication list including any new medications that you have been prescribed. Please provide that list to your primary provider Symptoms: If your condition changes or you experience any of the following symptoms, notify your physician immediately: Unusual or worsening pain, fever, persistent nausea and vomiting, bleeding, increase in swelling (especially in your legs), sudden weight gain, extreme dizziness, chest pain, increased drainage or redness from a wound or incision. Go to the emergency department if you experience a problem with breathing. Weights: If you have a history of swelling or shortness of breath, weigh yourself daily and notify your physician if you have a weight gain of two or more pounds in one day or 5 or more pounds in a week. If you experience any of the warning signs for stroke: Sudden numbness or weakness of the face, arm or leg; especially on one side of the body, sudden confusion, trouble speaking or understanding, sudden trouble seeing in one or both eyes, sudden trouble walking, dizziness, loss of balance or coordination, sudden sever headache with no cause; Call 911 or go to the emergency room. Stroke is a medical emergency. Some risk factors for stroke: Age, cigarette smoking, diabetes, excessive alcohol consumption, family history, high blood pressure, overweight, physical inactivity, prior stroke, heart attack, diagnosis of carotid artery stenosis or other artery disease. If you smoke, STOP: Smoking or tobacco use significantly increases your risk of heart and lung disease. Your chance of disease greatly increases if you continue to smoke. For more information, call the [place] tobacco quit line for smoking cessation 9-351-CYQI-NOW ( ) - Diet and Activity Activity: ambulate only with your walker, as per physical therapy, increase activity as tolerated Diet: low fat, low cholesterol, low salt diet <Elsy Watson - Last Filed: 08/24/18 19:06> Date of Encounter: 08/24/18 Time of Encounter: 16:00 - Discharge Diagnosis (1) History of total left knee replacement Status: Acute Hospital course: Ms. Guillen is a 82 year old female - Time Spent with Patient Total time spent providing and/or coordinating discharge services: Date of admission: 08/18/18 15:34 Primary care physician: PCP NONE Consults: 08/18/18 15:59 Consult to Occupational Therapy [CONS] Routine Comment: Evaluate, develop and implement POC Reason for Consult: s/p tkr Does patient have active BEDREST order?: No Is patient medically & hemodynamically stable?: Yes Patient assessed for mobility or mobilized this visit?: No Consult to Physical Therapy [CONS] Routine Comment: Evaluate, develop and implement POC Reason for Consult: s/p tkr Does patient have active BEDREST order?: No Is patient medically & hemodynamically stable?: Yes Patient assessed for mobility or mobilized this visit?: No Consult to Recreational Therapy [CONS] Routine Comment: Evaluate, develop and implement POC Consult to Mural Painter [CONS] Routine Reason for SW Consult: s/p tkr 08/20/18 10:35 Consult to Psychology [CONS] Routine Consulting Provider: Michelle Cam Reason for Consult: Possible depression; adjustment disorder Call Completed: No - Constitutional Vitals: Temp Pulse Resp BP Pulse Ox 97.6 F 98 18 132/72 94 08/24/18 07:00 08/24/18 07:00 08/24/18 07:00 08/24/18 07:00 08/24/18 07:00
[2018-08-23] MEDS: [UNRECOGNIZED DRUG - REMARK] PO SCH (15:51)
[2018-08-24] MEDS: *HR* Enoxaparin 40 MG/0.4 ML SYRINGE SQ SCH (05:46)
[2018-08-24 07:59] VITALS: BP 132/72
[2018-08-24] MEDS: Pyridoxine (B-6) 50 MG TABLET PO SCH (08:26)
[2018-08-24] MEDS: Cholecalciferol (D-3) 1,000 UNIT (25MCG) TABLET PO SCH (08:27)
[2018-08-24] MEDS: Furosemide 20 MG TABLET PO SCH (08:27)
[2018-08-24] MEDS: Magnesium Oxide 400 MG TABLET PO SCH (08:27)
[2018-08-24] MEDS: Vitamin B Complex/Vit C/Vit E 1 EACH TABLET PO SCH (08:27)
[2018-08-24] MEDS: Ascorbic Acid 500 MG TABLET PO SCH (08:27)
[2018-08-24] MEDS: Cyanocobalamin (B-12) 1,000 MCG TABLET PO SCH (08:27)
[2018-08-24] MEDS: Aspirin 81 MG TAB.CHEW PO SCH (08:27)
[2018-08-24] MEDS: LUTEIN 20 MG PO SCH (08:32)
[2018-08-24] MEDS: LYSINE 500 MG PO SCH (08:32)
[2018-08-24] MEDS: [UNRECOGNIZED DRUG - OTHER] PO SCH (08:32)
[2018-08-24] MEDS: OLODATEROL IH SCH (08:32)
[2018-08-24] MEDS: Flaxseed Oil [Omega-3 Flaxseed Oil] 1,000 MG PO SCH (08:32)
[2018-08-24] MEDS: [UNRECOGNIZED DRUG - OTHER] PO SCH (08:32)
[2018-08-24] MEDS: ECHINACEA 400 MG PO SCH (08:32)
[2018-08-24] MEDS: MULTIVITAMIN PO SCH (08:33)
== END 2018-08-24 12:08 | disposition home health service (06) | DRG 561 ==
LOC: INPGRE 08-18 15:34